=== PATIENT | male | born 1965 | race Caucasian/White ===

== ENCOUNTER → 2016-11-29 | Outpatient (CLI) | payer BC ==
[2016-11-29 11:12] LABS: BUN/CREATININE RATIO 17 (0-10)
== END ==
LOC: LAB 10:19
PROVIDERS: Internal Medicine Cardiovascular Disease
DX: I25.10 Atherosclerotic heart disease of native coronary artery without angina pectoris (principal); I48.0 Paroxysmal atrial fibrillation; I48.91 Unspecified atrial fibrillation; I20.9 Angina pectoris, unspecified; E78.5 Hyperlipidemia, unspecified; I11.0 Hypertensive heart disease with heart failure; I50.22 Chronic systolic (congestive) heart failure; R53.83 Other fatigue; R60.9 Edema, unspecified; R63.5 Abnormal weight gain; R00.2 Palpitations; R06.02 Shortness of breath
CPT/HCPCS: 36415; 80048; 80061; 80076; 84439; 84443; 84481

== ENCOUNTER → 2016-12-03 | Outpatient (CLI) | payer OTHER | LOC: KOH-I 11:22 | DX: M25.511 Pain in right shoulder (principal); M25.562 Pain in left knee | CPT/HCPCS: 73030; 73562 ==

== ENCOUNTER → 2016-12-27 | Outpatient (CLI) | payer OTHER | LOC: EMI 11:12 → MRI 11:15 | DX: S40.011A Contusion of right shoulder, initial encounter (principal); S46.011A Strain of muscle(s) and tendon(s) of the rotator cuff of right shoulder, initial encounter; R93.7 Abnormal findings on diagnostic imaging of other parts of musculoskeletal system | CPT/HCPCS: 73221 ==

== ENCOUNTER → 2017-02-14 | Outpatient (CLI) | payer OTHER ==
[2017-02-14 12:28] LABS: BUN/CREATININE RATIO 20 (0-10)
== END ==
LOC: LAB 11:32
PROVIDERS: Internal Medicine Cardiovascular Disease
DX: I48.0 Paroxysmal atrial fibrillation (principal); R06.02 Shortness of breath; R60.9 Edema, unspecified; R00.2 Palpitations; I48.91 Unspecified atrial fibrillation; I11.0 Hypertensive heart disease with heart failure; I50.22 Chronic systolic (congestive) heart failure
CPT/HCPCS: 36415; 80048; 83880

== ENCOUNTER 2017-03-01 11:50 | Emergency (ER) | payer BC ==
[2017-03-01 13:41] LABS: HEMOGLOBIN 13.3 gm/dl (14.0-17.5); RED BLOOD COUNT 4.47 M/UL (4.20-5.50)
[2017-03-01 13:59] LABS: BUN/CREATININE RATIO 23 (0-10)
== END 2017-03-01 16:50 ==
LOC: ER1 11:50
PROVIDERS: Emergency Medicine
DX: J38.4 Edema of larynx (principal); I25.10 Atherosclerotic heart disease of native coronary artery without angina pectoris
CPT/HCPCS: 36415; 70490; 71010; 80053; 85025; 85379; 86403; 87081; 87880; 93005; 96361; 96365; 96372; 96375; 99291; J0696; J1100; J1885; J2405; J2930; J7030; J7050